=== PATIENT | female | born 1975 | race Two or more races ===

== ENCOUNTER 2023-02-02 18:51 | Emergency (ER) | payer OTHER ==
[~2023-02-02] VITALS: Ht 160 cm; Wt 99.8 kg
[2023-02-02] MEDS ORDERED: ELIQUIS5 MG PO (19:10)
[2023-02-02] MEDS ORDERED: PLAQUNIL PO (19:11)
[2023-02-02] MEDS ORDERED: IRO-PLEX LIQUI120 ML PO (19:12)
== END 2023-02-03 13:32 | disposition home or self-care (01) ==
LOC: ER 18:51
DX: M54.50 Low back pain, unspecified (principal); N20.1 Calculus of ureter; M51.36 Other intervertebral disc degeneration, lumbar region

== ENCOUNTER 2024-11-29 15:41 | Emergency (ER) | payer OTHER ==
[~2024-11-29] VITALS: Ht 160 cm; Wt 104.3 kg
[~2024-11-29 15:41] MED LIST: ELIQUIS5 MG PO; IRO-PLEX LIQUI120 ML PO; PLAQUNIL PO
[2024-11-29] MEDS ORDERED: 0.9 % SODIUM CHLORIDE 500 ML IV ONE (18:15)
[2024-11-29] MEDS ORDERED: ONDANSETRON HCL 2 MG/ML VIAL IV ONE (18:15)
[2024-11-29] MEDS ORDERED: FAMOTIDINE/PF 20 MG/2 ML VIAL IV ONE (18:15)
[2024-11-29] MEDS ORDERED: LACTOBACILLUS ACIDOPHILUS 1 CAP CAP PO ONE ×2 (18:15→18:45)
[2024-11-29] MEDS ORDERED: ONDANSETRON HCL 2 MG/ML VIAL ONE (18:44)
[2024-11-29] MEDS ORDERED: FAMOTIDINE/PF 20 MG/2 ML VIAL ONE (18:45)
[2024-11-29 19:01] LABS: MEAN CELL VOLUME 85.3 fL (80.00-100.00); PLATELET COUNT 303 K/uL (150-450); RED BLOOD COUNT 4.81 M/uL (4.00-6.00)
[2024-11-29] MEDS ORDERED: BUTALB/ACETAMINOPHEN/CAFFEINE 1 TAB TABLET PO ONE ×2 (19:15→19:23)
[2024-11-29 19:23] LABS: PH,URINE 5.5 (5.0-8.0); URINE APPEARANCE Clear; URINE BILIRRUBIN Negative (NEGATIVE); URINE BLOOD Small; URINE COLOR Yellow; URINE GLUCOSE Negative (NEGATIVE); URINE KETONE Negative (NEGATIVE); URINE LEUKOCYTE Negative; URINE NITRATE Negative; URINE PROTEIN Trace (NEGATIVE)
[2024-11-29 19:26] LABS: URINE BACTERIA 133.3 uL (0.0-1933); URINE EPITHELIAL CELLS 19.4 uL (0.0-38.8); URINE RBC 29.6 uL (0.0-20.8); URINE WBC 6.6 uL (0.0-23.2)
[2024-11-29 19:32] LABS: INR 0.98; PARTIAL THROMBOPLASTIN TIME 28.4 SECONDS (22.0-34.0); PROTHROMBIN TIME 10.7 SECONDS (9.0-11.5)
[2024-11-29 19:35] LABS: ALBUMIN 3.7 gm/dL (3.4-5.0); BILIRUBIN TOTAL 0.5 mg/dL (0.3-1.2); CALCIUM 9.6 mg/dL (8.5-10.1); CREATININE SERUM 0.67 mg/dL (0.55-1.02); GFR 93.55; GLOBULINA 4.7 G/DL (2.4-3.5); POTASSIUM 3.68 mEq/L (3.5-5.1); TOTAL PROTEIN 8.4 gm/dL (6.4-8.2)
[2024-11-29] MEDS ORDERED: ORPHENADRINE CITRATE 30 MG/ML AMPUL IM ONE (22:00)
[2024-11-29] MEDS ORDERED: PEPCID AC20 MG PO (22:01)
[2024-11-29] MEDS ORDERED: INTESTINEX680 M1 PO (22:01)
[2024-11-29] MEDS ORDERED: NORFLEX100MG PO (22:01)
[2024-11-29] MEDS ORDERED: ORPHENADRINE CITRATE 30 MG/ML AMPUL ONE (22:02)
== END 2024-11-29 22:12 ==
LOC: ER 15:43
PROVIDERS: General Practice
DX: R10.32 Left lower quadrant pain (principal); K57.30 Diverticulosis of large intestine without perforation or abscess without bleeding; K80.20 Calculus of gallbladder without cholecystitis without obstruction; N80.121 Deep endometriosis of right ovary; M79.10 Myalgia, unspecified site; Z20.822 Contact with and (suspected) exposure to COVID-19

== ENCOUNTER 2025-08-22 20:40 | Emergency (ER) | payer OTHER ==
[~2025-08-22] VITALS: Ht 152.4 cm; Wt 102.1 kg
[~2025-08-22 20:40] MED LIST changes: +INTESTINEX680 M1 PO; +NORFLEX100MG PO; +PEPCID AC20 MG PO
[2025-08-22] MEDS ORDERED: DRIZALMA SPRINK60 MG PO (21:22)
[2025-08-22] MEDS ORDERED: 0.9 % SODIUM CHLORIDE 1,000 ML IV SCH (23:45)
[2025-08-22] MEDS ORDERED: ACETAMINOPHEN 500 MG GEL..CAP PO ONE (23:45)
[2025-08-22] MEDS ORDERED: FAMOTIDINE/PF 20 MG/2 ML VIAL IV ONE (23:45)
[2025-08-22] MEDS ORDERED: IPRATROPIUM BROMIDE 0.5 MG/2.5 ML AMPUL.NEB IH ONE (23:45)
[2025-08-22] MEDS ORDERED: DEXAMETHASONE SODIUM PHOSP/PF 10 MG/ML VIAL IV ONE (23:45)
[2025-08-23 00:31] LABS: BASO % 1.0 % (0.1-1.2); EOS # 0.36 (0.04-0.54); EOS % 5.3 % (0.7-7.0); LYMPH # 2.70 (1.18-3.74); LYMPH % 39.9 % (19.3-53.1); MEAN PLATELET VOLUME 8.80 fl (9.4-12.4); MONO # 0.58 (0.24-0.82); MONO % 8.6 % (4.7-12.5); NEUT # 3.05 (1.56-6.13); NEUT % 45.1 % (34.0-71.1); RED CELL DISTRIBUTION WIDTH 14.5 % (11.6-14.4)
[2025-08-23 00:48] LABS: INR 0.98
[2025-08-23 01:39] LABS: COVID-19 AG NEGATIVE (NEGATIVE)
[2025-08-23 01:58] LABS: ALT/SGPT 28.0 U/L (12-78); AST/SGOT 28.0 U/L (15-37); BILIRUBIN TOTAL 0.4 mg/dL (0.3-1.2); BUN CREA RATIO 16.0 (7.0-25.0); CKMB 1.9 NG/ML (0.5-3.6); CREATININE SERUM 0.61 mg/dL (0.55-1.02); GFR 103.82; GLOBULINA 3.8 G/DL (2.4-3.5); GLUCOSE FASTING 109.0 mg/dL (65-100); OSMOLALITY SERUM 288.0 MOSM/KG (275-295)
[2025-08-23] MEDS ORDERED: LEVALBUTER0.63 MG/3 IH (04:20)
== END 2025-08-23 05:28 | disposition home or self-care (01) ==
LOC: ER 20:40
PROVIDERS: Student in an Organized Health Care Education/Training Program
DX: I26.99 Other pulmonary embolism without acute cor pulmonale (principal); R07.9 Chest pain, unspecified; R06.02 Shortness of breath; M32.8 Other forms of systemic lupus erythematosus; J45.909 Unspecified asthma, uncomplicated; E23.6 Other disorders of pituitary gland; Z86.72 Personal history of thrombophlebitis; Z20.822 Contact with and (suspected) exposure to COVID-19